=== PATIENT | male | born 1950 | race Caucasian/White ===

== ENCOUNTER 2018-11-09 23:23 | Inpatient (IN) | payer OTHER, MEDICARE ==
[~2018-11-09] VITALS: Ht 170.2 cm; Wt 114.6 kg
[~2018-11-09 23:23] MED LIST: ALLO100 PO; ALPR1 PO; CLON1 PO; CLOP75 PO; DOXY100 PO; FURO40 PO; HYDACE10B PO; HYDRA25 PO; INSR10I SC; LEVCAR2510 PO; LISI5 PO; METO5 PO; NITR.4SL SL; OMEP20ER PO; RANI150 PO; SPIR25 PO; TOPI100 PO; TRAZ100 PO; VENL150ER PO
[2018-11-10 00:20] LABS: BASOPHILS ABSOLUTE AUTO 0.03 K/mm3 (0.00-0.23); BASOPHILS PERCENT AUTO 0 % (0-2); EOSINOPHILS PERCENT AUTO 0 % (0-6); Hematocrit 37.6 % (37.0-53.0); Hemoglobin 11.9 g/dL (13.5-17.5); IMMATURE GRAN ABSOLUTE AUTO 0.18 K/mm3 (0.00-0.10); IMMATURE GRAN PERCENT AUTO 1 % (0-1); LYMPHOCYTES ABSOLUTE AUTO 0.66 K/mm3 (0.84-5.20); LYMPHOCYTES PERCENT AUTO 5 % (21-46); MONOCYTES ABSOLUTE AUTO 0.87 K/mm3 (0.16-1.47); MONOCYTES PERCENT AUTO 6 % (4-13); Mean Corpuscular HGB 29.6 pg (26.0-34.0); Mean Corpuscular HGB Conc 31.6 g/dL (31.5-36.5); Mean Corpuscular Volume 94 fL (80-100); Mean Platelet Volume 9.4 fL (9.1-12.4); NEUTROPHILS ABSOLUTE AUTO 12.17 K/mm3 (1.96-9.15); NEUTROPHILS PERCENT AUTO 88 % (41-73); Platelet Count 196 K/mm3 (150-400); RDW Coefficient Variation 15.9 % (11.7-14.2); RDW Standard Deviation 55.1 fL (35.1-46.3); Red Blood Cell Count 4.02 M/mm3 (4.30-5.90); White Blood Cell Count 13.91 K/mm3 (4.00-11.30)
[2018-11-10 00:43] LABS: Creatine Kinase MB 1.7 ng/mL (0.0-3.6)
[2018-11-10 00:44] LABS: Creatine Kinase MB Index 1.5 (0.0-4.0)
[2018-11-10 00:45] LABS: Albumin, Blood 2.6 g/dL (3.4-5.0); Albumin/Globulin Ratio 0.6 (0.8-1.8); Bilirubin, Total 0.9 mg/dL (0.1-1.0); Bun/Creatinine Ratio 28.8 (12.0-20.0); Calcium, Blood 8.3 mg/dL (8.5-10.1); Creatinine, Blood 1.63 mg/dL (0.60-1.20); Globulin, Blood 4.1 g/dL (2.2-4.0); Potassium, Blood 4.3 mmol/L (3.5-5.5); Total Protein, Blood 6.7 g/dL (6.4-8.2)
[2018-11-10 00:57] LABS: Troponin I 0.582 ng/mL (0.000-0.040)
[2018-11-10 03:29] LABS: Source, Urine Clean Catch
[2018-11-10 03:31] LABS: Bilirubin, Urine Neg (Neg); Blood, Urine 1+ (Neg); Glucose Qualitative, Urine 4+ (Neg); Ketones, Urine Neg (Neg); Leukocyte Esterase, Urine Neg (Neg); Nitrite, Urine Neg (Neg); Protein, Urine 1+ (Neg); Specific Gravity, Urine 1.015 (1.003-1.022); Urobilinogen, Urine NORM (Normal)
[2018-11-10 03:39] LABS: Appearance, Urine Clear (Clear); Color, Urine Yellow (P-Yellow)
[2018-11-10 03:46] LABS: Bacteria Rare /hpf; Red Blood Cells, Urine 0-2 /hpf (0-2); Squamous Epithelial Cells Not Seen /hpf (Few); White Blood Cells, Urine Rare /hpf (0-5)
--- NOTE | 2018-11-10 04:17 | NUR ---
SHIFT SUMMARY PT ADMITTED WITH FEVER, AFEBRILE UPON ADMISSION TO MEDICAL FLOOR. PT ALERT AND ORIENTED, IS HARD OF HEARING. PT WITH LÓPEZ CATH IN PLACE, MUCOUS NOTED AT MEATUS. ORDER RECEIVED TO DISCONTINUE LÓPEZ. PT NOTED TO HAVE MULTIPLE YEASTY AREAS, UNDER BREASTS, PANNUS, GROIN AREA, SCROTUM. PT HAD FALL AT HOME AND WAS ON THE FLOOR ALL NIGHT 2 NIGHTS AGO, SATURATED IN URINE. PT STATES HE IS CONTINENT AND INCONTINENT AT TIMES. PT USES A CPAP AT NIGHT TO SLEEP, HISTORY OF SLEEP APNEA. PT ALSO HAS MULTIPLE SMALL SCABBED AREAS ON TORSO. HAS A MEPILEX IN PLACE OVER AN AREA ON RUQ, NO DRAINAGE NOTED AND DOESN'T APPEAR TO BE OPEN. WILL CONTINUE TO MONITOR.
[2018-11-10 04:57] LABS: Hematocrit 38.1 % (37.0-53.0); Hemoglobin 11.9 g/dL (13.5-17.5); Mean Corpuscular HGB 29.9 pg (26.0-34.0); Mean Corpuscular HGB Conc 31.2 g/dL (31.5-36.5); Mean Corpuscular Volume 96 fL (80-100); Mean Platelet Volume 9.8 fL (9.1-12.4); Platelet Count 205 K/mm3 (150-400); RDW Standard Deviation 57.3 fL (35.1-46.3); Red Blood Cell Count 3.98 M/mm3 (4.30-5.90); White Blood Cell Count 12.22 K/mm3 (4.00-11.30)
[2018-11-10 05:23] LABS: Albumin, Blood 2.7 g/dL (3.4-5.0); Albumin/Globulin Ratio 0.6 (0.8-1.8); Bilirubin, Total 1.1 mg/dL (0.1-1.0); Bun/Creatinine Ratio 30.1 (12.0-20.0); Calcium, Blood 8.7 mg/dL (8.5-10.1); Creatinine, Blood 1.66 mg/dL (0.60-1.20); Globulin, Blood 4.2 g/dL (2.2-4.0); Potassium, Blood 4.2 mmol/L (3.5-5.5); Total Protein, Blood 6.9 g/dL (6.4-8.2)
[2018-11-10 08:46] LABS: Troponin I 0.529 ng/mL (0.000-0.040)
--- NOTE | 2018-11-10 10:44 | NUR ---
0810 NOTIFIED BY DROP SHIPMENT CLERK THAT PT C/O CP. PT ASSESSED. PT REPORTS SUBSTERNAL CP THAT DOES NOT RADIATE OR INCREASE WITH INSPIRATION. 0820 DR. BANUELOS NOTIFIED, RECIEVED T/O FOR STAT EKG, STAT TROPONIN, ONE TIME DOSE OF NITRO SL. 0825 DR. BANUELOS AT BEDSIDE TO EVALULATE PT. 0845 DR. BANUELOS GIVEN EKG TO EVALUATE. 0910 PT DENIES CP WITHOUT DOSE OF NITRO GIVEN. ONLY C/O SORE THROAT. DR. BANUELOS NOTIFIED. 1045 PT NO VOID, ATTEMPTED TO HAVE PT VOID WITH URINAL, PT UNABLE AND HAS NO URGE. BLADDER SCANNED, VOLUME GREATER THAN 650ML, YELLOW/GREEN PENILE DISCHARGE NOTED. 1055 DR[address] BANUELOS NOTIFIED, RECIEVED T/O TO STRAIGHT CATH, BLADDER SCAN Q6H AND SHE IS GOING TO START PT ON FLOMAX BID. PT HAS BEEN LETHARGIC AND SLEEPING ALL SHIFT. PT REFUSED BREAKFAST AND REQUESTED TO TAKE AM MEDICATIONS WITH LUNCH. WILL ATTEMPT TO GET PT TO CHAIR FOR LUNCH. SS INSULING HELD PT DID NOT EAT BREAKFAST.
--- NOTE | 2018-11-10 12:50 | NUR ---
PT HAD EXTRA LARGE INCONTINENT VOID. UP TO CHAIR FOR LUNCH WITH ONE ASSIST. NO STRAIGHT CATH AT THIS TIME.
--- NOTE | 2018-11-10 16:06 | NUR ---
SHIFT SUMMARY. A&OX3, 1-2 ASSIST WITH FWW AND GB TO TOILET AND CHAIR. UP TO CHAIR FOR MEALS. AWARE OF LIMITATIONS AND CALLS APPROPRIATLEY. PT DENIES PAIN, N/V. SOB WITH EXERTION. PHYSICAL THERAPY EVAL TODAY. BROTHER IN TO VISIT THIS AFTERNOON. PT HAS HAD TWO UNMEASURED VOIDS SINCE ORDER RECIEVED FOR STRAIGHT CATH, WILL BLADDER SCAN PER ORDERS. NO NEW CHANGES.
[2018-11-10 17:08] LABS: Troponin I 0.345 ng/mL (0.000-0.040)
--- NOTE | 2018-11-11 04:38 | NUR ---
SHIFT SUMMARY PT HAS BEEN SLEEPING WELL. HAS BEEN INCONTINENT OF LARGE VOIDS. WHEN ASKED TO USE URINAL PT DENIES FEELING THE URGE TO GO. STATES HE WILL JUST GO IN BRIEF WHEN HE FEELS THE URGE. PT C/O LEFT LEG PAIN, TYLENOL GIVEN. NO FURTHER C/O'S DURING THE NIGHT. CPAP ON, BI-OX ON. TELEMETRY INTACT, WILL CONTINUE TO MONITOR.
[2018-11-11 05:16] LABS: BASOPHILS ABSOLUTE AUTO 0.04 K/mm3 (0.00-0.23); BASOPHILS PERCENT AUTO 0 % (0-2); EOSINOPHILS ABSOLUTE AUTO 0.22 K/mm3 (0.00-0.68); EOSINOPHILS PERCENT AUTO 2 % (0-6); Hematocrit 38.8 % (37.0-53.0); Hemoglobin 11.9 g/dL (13.5-17.5); IMMATURE GRAN ABSOLUTE AUTO 0.08 K/mm3 (0.00-0.10); IMMATURE GRAN PERCENT AUTO 1 % (0-1); LYMPHOCYTES ABSOLUTE AUTO 0.68 K/mm3 (0.84-5.20); LYMPHOCYTES PERCENT AUTO 7 % (21-46); MONOCYTES PERCENT AUTO 9 % (4-13); Mean Corpuscular HGB 29.1 pg (26.0-34.0); Mean Corpuscular HGB Conc 30.7 g/dL (31.5-36.5); Mean Corpuscular Volume 95 fL (80-100); Mean Platelet Volume 10.1 fL (9.1-12.4); NEUTROPHILS ABSOLUTE AUTO 7.99 K/mm3 (1.96-9.15); NEUTROPHILS PERCENT AUTO 81 % (41-73); Platelet Count 223 K/mm3 (150-400); RDW Coefficient Variation 15.9 % (11.7-14.2); Red Blood Cell Count 4.09 M/mm3 (4.30-5.90); White Blood Cell Count 9.91 K/mm3 (4.00-11.30)
[2018-11-11 05:42] LABS: Magnesium, Blood 2.9 mg/dL (1.6-2.4)
[2018-11-11 05:44] LABS: Bun/Creatinine Ratio 32.1 (12.0-20.0); Calcium, Blood 8.8 mg/dL (8.5-10.1); Creatinine, Blood 1.59 mg/dL (0.60-1.20); Potassium, Blood 4.2 mmol/L (3.5-5.5)
--- NOTE | 2018-11-11 16:26 | NUR ---
SUMMARY PT IS A/O X4, PLEASANT/COOPERATIVE. UP WITH CHARLIE TO CHAIR TODAY, [address] BANUELOS IN TO SEE HIM THIS AM, ASSESS L LEG CELLULITIS, AREA OF UPER LEG MAPPED @ THIS TIME. IV ANTIBX CONTINUE. LEG IS PAINFUL WITH TOUCH. PT HAS HX URINARY RETENTION & INCONTINENCE, DR HENDRICKSON RENAL US, SCAN SHOW 700 ML RETENTION HOWEVER IMMEDIATELY AFTER INCONT OF LRG AMT URINE, PVR 182. HE HAS HAD MULT LRG INCONT VOIDS TODAY. VSS, NO FEVERS. HX PARKINSONS, SIGNIFICANT BUE TERMORS, ON SINEMET. TELE REPORT AFLUTTER 60'S. TROP ELEVATED, TRENDING DOWN, HX CHF & CABG/STENTS.
--- NOTE | 2018-11-12 04:26 | NUR ---
SHIFT SUMMARY NO CHANGES THIS SHIFT. PT HAS RESTED MOST OF THE NIGHT. CELLULITIS TO LEFT LEG REMAINS AND IS EXTENDED TO UPPER LEG. PT REPORTS PAIN IN LEG INTERMITTANTLY. BUT STATES PAIN IS TOLERABLE. EDEMA TO BLE +3. PT A/OX4, PLESANT, AND COPPERATIVE WITH CARE. BLOOD SUGARS IN THE 200'S. VITALS ARE STABLE. HUGH BIOX IN PLACE. SATS WNL. ASSESSMENT OTHERWISE UNCHANGED. WILL CONTINUE TO MONITOR AND REPORT TO ONCOMING RN.
[2018-11-12 04:40] LABS: Hematocrit 38.6 % (37.0-53.0); Hemoglobin 11.9 g/dL (13.5-17.5); Mean Corpuscular HGB 29.2 pg (26.0-34.0); Mean Corpuscular HGB Conc 30.8 g/dL (31.5-36.5); Mean Corpuscular Volume 95 fL (80-100); Mean Platelet Volume 9.7 fL (9.1-12.4); Platelet Count 218 K/mm3 (150-400); RDW Coefficient Variation 15.5 % (11.7-14.2); RDW Standard Deviation 53.9 fL (35.1-46.3); Red Blood Cell Count 4.08 M/mm3 (4.30-5.90)
[2018-11-12 05:00] LABS: Albumin, Blood 2.4 g/dL (3.4-5.0); Anion Gap 7 mmol/L (6-16); Blood Urea Nitrogen 44 mg/dL (8-24); Bun/Creatinine Ratio 32.4 (12.0-20.0); CO2, Blood 27 mmol/L (21-32); Calcium, Blood 8.8 mg/dL (8.5-10.1); Chloride, Blood 102 mmol/L (98-108); Creatinine, Blood 1.36 mg/dL (0.60-1.20); Glomerular Filtration Rate 55 (60-); Glucose, Blood 267 mg/dL (70-99); Magnesium, Blood 2.8 mg/dL (1.6-2.4); Phosphorus, Blood 3.7 mg/dL (2.5-4.9); Potassium, Blood 4.5 mmol/L (3.5-5.5); Sodium, Blood 136 mmol/L (136-145)
--- NOTE | 2018-11-12 17:03 | NUR ---
SUMMARY PT IS A/O X4, PLEASANT/COOPERATIVE AFFECT. SBA W FWW TO CHAIR. VS STABLE, NO FEVER TODAY. HE HAS REDNESS/SWELLING L THIGH AREA THAT IS MAPPED, DR BANUELOS IS MONITIORING. DX CELLULITIS & PNEUM. HE IS GETTING IV ANTIBX. L LEG IS VERY PAINFUL WITH TOUCH, HAVE GIVEN NORCO TWICE TODAY FOR GOOD PAIN CONTROL. HAVE BEEN MONITORING URINARY RETENTION. PVR TODAY APPOX 167 & 240, NO STRAIT CATH REQUIRED, DR CHANGE BLADDER SCANS TO NEEDED. HE HAS BEEN GENERALLY CONTINENT WITH URINAL HOWEVER @ X'S INCONT, CONTINUES IN ATTENDS. UP IN CHAIR THIS AFTERNOON UNTIL DINNERTIME. BLOOD SUGARS HAVE BEEN ELEVATED, ADJUST INSULIN ORDERS.
--- NOTE | 2018-11-13 04:33 | NUR ---
SHIFT SUMMARY NO CHANGES THIS SHIFT. PT HAS RESTED MOST OF THE NIGHT, MEDICATED X1 FOR PAIN. PT HAS BEEN CALLING WHENEVER HE HAS TO VOID AND HAS NOT HAD ANY PROBLEMS WITH RETENTION OR INCONTINENCE. CELLULITIS TO LEFT LEG REMAINS. OUTLINED WITH TAMI. PT A/OX4, PLESANT WITH CARE. VITALS STABLE. WILL CONTINUE TO MONITOR AND REPORT TO ONCOMING RN.
--- NOTE | 2018-11-13 14:11 | NUR ---
Initial Visit: Palliative Care consult for advance care planning. Pt resting in bed and is A&O X4. He reports a tolerable pain level of 5/10 in his left hip. Pt is a and retired counselor at law. He denies any religous belief. Therapeutic conversation initated and listened to Pt's concerns for imediate and nursing home goals for his disease process. Listened as he reminiscence about hunting and his gun collection. He expresses some frustration of giving many of his guns and recreational toys to his family members as he is no longer to enjoy them due to his condition. Discussion was made about the possiblilty of going to SNF and he expresses concerns but will consider this option. He reports that the [facility] provides caregivers that come into his home several times a week and his brother and sister in law also helps in his care. Discussed plans and needs for him to be successful in his plan of care including dibetes education and diet education. He states "I have been there and done that and not interested". He reports his biggest concern at this time is not receiving his leg wrappings during his hospital stay. He states he has them wrapped at the [facility] by Selena finch. Spoke with Pt's nurse Odessa and she reports needing to adress his leg dressings as well. Plan: Contact Selena at [facility] and determine dressings Pt receives and request from hospitilist the same dressing. Will remain available available.
--- NOTE | 2018-11-13 18:31 | NUR ---
SHIFT SUMMARY EL GOT UP TO CHAIR WITH AO1-2 TWICE TODAY. INCONTINENT AT TIMES, AND INCONTINENT AT TIMES OF URINE. HAD BM TODAY. RED UNDER FOLDS, NYSATIN APPLIED. BLADDER SCANNED X1 TODAY, AROUND 150CC. CBGS HIGH BUT UNDER BETTER CONTROL TODAY THAN YESTERDAY. PT WANTS TO GO TO [facility] FOR SNF, NOT [facility], THIS WAS RELAYED TO CASE MANAGEMENT. CALL IN (BY PALLIATIVE) TO [facility] TO SEE WHAT KIND OF WRAPS HE USED ON HIS LEGS, AWAITING CALLBACK. LOTS OF TREMORS, REQUIRED ASSISTNACE WITH MEAL PREP/CUTTING WELL USING URINAL. USED CPAP FOR NAPS. RA WHILE AWAKE. COMPLAINED OF PAIN IN R PINKY BUT DECLINED PAIN MEDS.WCTM
--- NOTE | 2018-11-14 04:56 | NUR ---
11/14/18 0455 PT SLEPT MOST OF SHIFT WITH CPAP ON. AWAKENS FOR MEDS, TURNING AND NURSING TASKS. VITALS REMAIN STABLE. SEVERE EDEMA WITH CELLULITIS TO LOWER LEGS. LIMITED MOVEMENT WITH LEGS THEY ARE HEAVY AND WEAK. NO DISTRESS THIS SHIFT.
--- NOTE | 2018-11-14 18:39 | NUR ---
SHIFT SUMMARY PATIENT A&O X4. DENIES ANY PAIN, SOB, OR NAUSEA THIS SHIFT. WORE CPAP MOST OF THE SHIFT. RN MEDICATED PER Jan. UP TO CHAIR FOR MEALS. IV ABX PER ORDERS. BED IN LOWEST POSITION , CALL LIGHT WITHIN REACH. NO ACUTE CHANGES. RN WILL CONTINUE TO MONITOR.
--- NOTE | 2018-11-15 05:10 | NUR ---
11/15/18 0510 AWAKENED TO REPOSITION AND DO SKIN CARE AND CHANGE ATTENDS BRIEF. REFUSED TO LAY ON EITHER SIDE THIS IS"TOO UNCOMFORTABLE". DECLINED ANY PAIN MED THIS AM. VITALS REMAIN STABLE. NO STOOLS THIS SHIFT.
--- NOTE | 2018-11-15 10:56 | NUR ---
I entered patient's room and found him sitting up in bed and alert. Patient welcomed me in and allowed for therapeutic alliance to be established. Patient shared with me his deep concerns about feeling forced into being moved to a rehabilitation unit. I listened empathically as he shared the reasons connected to his hesitation for that kind of move. I provided anxiety containment, normalized his frustrations, explored his belief system and I encouraged self-care. I also suggested that the motive behind the attempts for a move to a rehab. facility was in his best interest. After asking permission, I provided prayer. Patient thanked me for the prayer and asked if I could return and visit again with him. I said I would make every effort to do so.
--- NOTE | 2018-11-15 18:12 | NUR ---
PATIENT A/OX4, UP WITH FWW ANS 1 ASSIST TO CHAIR. 4+ EDEMA TO BLE. MULTIPLE SCABS AND SORES COVERING BODY. NYSTATIN POWDER TO FOLDS. VSS THIS SHIFT. ACHS BLOOD SUGARS WITH HUMALOG AND LANTUS COVERAGE. CPAP AT NOC WITH CONTINUOUS PULSE OX. USES URINAL WITH OCCASIONAL INCONTINENCE. NORCO GIVEN X2 THIS SHIFT FOR NECK PAIN. 22G TO L UPPER ARM WNL AND SL BETWEEN ABX. CONTACT PRECAUTIONS FOR MRSA IN NARES. NO ACUTE CHANGES THIS SHIFT. PATIENT IS WANTING TO GO HOME INSTEAD OF SNF.
--- NOTE | 2018-11-16 01:06 | NUR ---
11/15/18 3493 PT LYING IN BED, DENIES ANY DISCOMFORT AT THIS TIME. USES CPAP AT [facility]. BS 164. NO APPARENT SIGNS OF DISTRESS. CALL LIGHT IS IN REACH.
--- NOTE | 2018-11-16 01:55 | NUR ---
11/15/18 2347 PT LYING IN BED, AWAKE, DENIES NEED FOR ANYTHING AT THIS TIME. NO APPARENT SIGNS OF DISTRESS. CALL LIGHT IS IN REACH.
--- NOTE | 2018-11-16 01:56 | NUR ---
PT LYING IN BED, EYES CLOSED, APPEARS TO BE RESTING. BREATHING IS EVEN, UNLABORED. NO APPARENT SIGNS OF DISTRESS. CALL LIGHT IS IN REACH.
--- NOTE | 2018-11-16 03:32 | NUR ---
PT LYING IN BED, EYES CLOSED, APPEARS TO BE RESTING. BREATHING IS EVEN, UNLABORED.NO APPARENT SIGNS OF DISTRESS. CALL LIGHT IS IN REACH.
--- NOTE | 2018-11-16 03:36 | NUR ---
PT IS AAO X 4, RESIGHINI. ON RA AT 98%. USES CPAP AT [facility]. DENIED ANY DISCOMFORT FOR THIS SHIFT. BS 164. YEAST IN ABD FOLDS, HAS NYSTATIN POWDER FOR THIS.
[2018-11-16 05:24] LABS: BASOPHILS ABSOLUTE AUTO 0.05 K/mm3 (0.00-0.23); BASOPHILS PERCENT AUTO 1 % (0-2); EOSINOPHILS ABSOLUTE AUTO 0.36 K/mm3 (0.00-0.68); EOSINOPHILS PERCENT AUTO 6 % (0-6); Hematocrit 38.6 % (37.0-53.0); Hemoglobin 12.1 g/dL (13.5-17.5); IMMATURE GRAN ABSOLUTE AUTO 0.34 K/mm3 (0.00-0.10); IMMATURE GRAN PERCENT AUTO 5 % (0-1); LYMPHOCYTES ABSOLUTE AUTO 0.79 K/mm3 (0.84-5.20); LYMPHOCYTES PERCENT AUTO 13 % (21-46); MONOCYTES ABSOLUTE AUTO 0.71 K/mm3 (0.16-1.47); MONOCYTES PERCENT AUTO 11 % (4-13); Mean Corpuscular HGB 29.8 pg (26.0-34.0); Mean Corpuscular HGB Conc 31.3 g/dL (31.5-36.5); Mean Corpuscular Volume 95 fL (80-100); Mean Platelet Volume 9.2 fL (9.1-12.4); NEUTROPHILS ABSOLUTE AUTO 4.02 K/mm3 (1.96-9.15); NEUTROPHILS PERCENT AUTO 64 % (41-73); Platelet Count 308 K/mm3 (150-400); RDW Coefficient Variation 14.8 % (11.7-14.2); RDW Standard Deviation 52.5 fL (35.1-46.3); Red Blood Cell Count 4.06 M/mm3 (4.30-5.90); White Blood Cell Count 6.27 K/mm3 (4.00-11.30)
--- NOTE | 2018-11-16 05:30 | NUR ---
PT LYING IN BED, EYES CLOSED, APPEARS TO BE RESTING. BREATHING IS EVEN, UNLABORED. NO APPARENT SIGNS OF DISTRESS. CALL LIGHT IS IN REACH. NO OTHER CHANGES THIS SHIFT.
[2018-11-16 05:50] LABS: Anion Gap 6 mmol/L (6-16); Blood Urea Nitrogen 25 mg/dL (8-24); Bun/Creatinine Ratio 23.6 (12.0-20.0); CO2, Blood 26 mmol/L (21-32); Calcium, Blood 8.8 mg/dL (8.5-10.1); Chloride, Blood 105 mmol/L (98-108); Creatinine, Blood 1.06 mg/dL (0.60-1.20); Glomerular Filtration Rate >60 (60-); Glucose, Blood 166 mg/dL (70-99); Potassium, Blood 4.2 mmol/L (3.5-5.5); Sodium, Blood 137 mmol/L (136-145)
--- NOTE | 2018-11-16 18:31 | NUR ---
PATIENT A/OX4, VERY [place]. WORKED WITH PT/OT TODAY. SPENT THE AFTERNOON UP IN HIS CHAIR. 4+EDEMA TO BLE, SKIN RED. MULTIPLE SCABS COVERING BODY, NYSTATIN APPLIED TO FOLD. USES URINAL AT TIMES, OCCASIONAL INCONTIENCE. UP WITH FWW AND 1 ASSIST. CALLS APPROPRIATELY FOR ASSISTANE. ACHS BLOOD SUGARS, TOLERATING ADA DIET. VSS, LUNGS CLEAR/DIM ON RA. NO ACUTE CHANGES THIS SHIFT.
--- NOTE | 2018-11-17 01:50 | NUR ---
11/16/18 2155 PT LYING IN BED, REPORTS SHOULDER PAIN, GAVE NORCO, WILL EVAL FOR EFFECT. NO OTHER APPARENT SIGNS OF DISTRESS. CALL LIGHT IS IN REACH.
--- NOTE | 2018-11-17 01:51 | NUR ---
0051 PT LYING IN BED, EYES CLOSED, APPEARS TO BE RESTING. WAKES EASILY TO VERBAL STIMULI. NO APPARENT SIGNS OF DISTRESS. CALL LIGHT IS IN REACH. 0150 PT LYING IN BED, EYES CLOSED, APPEARS TO BE RESTING. BREATHING IS EVEN, UNLABORED. NO APPARENT SIGNS OF DISTRESS. CALL LIGHT IS IN REACH.
--- NOTE | 2018-11-17 03:28 | NUR ---
PT LYING IN BED, EYES CLOSED, APPEARS TO BE RESTING. BREATHING IS EVEN, UNLABORED. NO APPARENT SIGNS OF DISTRESS. CALL LIGHT IS IN REACH.
--- NOTE | 2018-11-17 03:29 | NUR ---
PT IS AAO X 4, THOUGH [facility]. REPORTED SHOULDER PAIN, GOT NORCO. ON RA. BS WAS 157.
--- NOTE | 2018-11-17 13:56 | NUR ---
REPORT CALLED TO ANEL AT 1355 AT [facility].
[2018-11-17] MEDS ORDERED: DOCU100 PO (14:19)
[2018-11-17] MEDS ORDERED: INSULANPEN SC ×2 (14:20→14:21)
[2018-11-17] MEDS ORDERED: Humalog100 UNIT/1 SC (14:21)
[2018-11-17] MEDS ORDERED: Humalog Mi100 UNIT/4 (14:22)
[2018-11-17] MEDS ORDERED: Pedi-Dri 100,0060 GM TOP (14:23)
[2018-11-17] MEDS ORDERED: Flomax0.4 MG PO (14:24)
[2018-11-17] MEDS ORDERED: SACC250C PO (14:25)
[2018-11-17] MEDS ORDERED: FLONASE SENSIM5.9 ML (14:26)
== END 2018-11-17 14:45 | DRG 871 ==
LOC: DELPENDDIS → ER 23:23 → MEDS 11-10 00:52 → ER 11-10 02:12 → MEDS 11-10 02:12 → ENPENDDIS 11-14 14:00 → EDPENDDIS 11-14 19:32 → ENPENDDIS 11-14 19:32 → MEDS 11-17 14:45 → ENPENDDIS 11-17 14:46
PROVIDERS: Emergency Medicine; Internal Medicine; ADMIT Internal Medicine
PROC: 5A09357 Assistance with Respiratory Ventilation, Less than 24 Consecutive Hours, Continuous Positive Airway Pressure (ICD-10-PCS; principal; 2018-11-10)
PROC: 3E02340 Introduction of Influenza Vaccine into Muscle, Percutaneous Approach (ICD-10-PCS; 2018-11-10)
DX: A41.9 Sepsis, unspecified organism (principal); J18.9 Pneumonia, unspecified organism; L03.116 Cellulitis of left lower limb; N17.9 Acute kidney failure, unspecified; I13.0 Hypertensive heart and chronic kidney disease with heart failure and stage 1 through stage 4 chronic kidney disease, or unspecified chronic kidney disease; I50.32 Chronic diastolic (congestive) heart failure; I48.92 Unspecified atrial flutter; F33.8 Other recurrent depressive disorders; Z68.42 Body mass index [BMI] 45.0-49.9, adult; E86.0 Dehydration; R65.20 Severe sepsis without septic shock; M19.90 Unspecified osteoarthritis, unspecified site; G31.83 Neurocognitive disorder with Lewy bodies; F02.80 Dementia in other diseases classified elsewhere, unspecified severity, without behavioral disturbance, psychotic disturbance, mood disturbance, and anxiety; E11.22 Type 2 diabetes mellitus with diabetic chronic kidney disease; E11.65 Type 2 diabetes mellitus with hyperglycemia; N18.3 Chronic kidney disease, stage 3 (moderate); I25.10 Atherosclerotic heart disease of native coronary artery without angina pectoris; E11.40 Type 2 diabetes mellitus with diabetic neuropathy, unspecified; G47.33 Obstructive sleep apnea (adult) (pediatric); I25.2 Old myocardial infarction; R33.9 Retention of urine, unspecified; I27.20 Pulmonary hypertension, unspecified; E66.01 Morbid (severe) obesity due to excess calories; R26.9 Unspecified abnormalities of gait and mobility; R77.8 Other specified abnormalities of plasma proteins; F41.8 Other specified anxiety disorders; M10.9 Gout, unspecified; I89.0 Lymphedema, not elsewhere classified; Z23 Encounter for immunization; F43.10 Post-traumatic stress disorder, unspecified; E78.5 Hyperlipidemia, unspecified; Z74.09 Other reduced mobility; Z79.02 Long term (current) use of antithrombotics/antiplatelets; Z91.81 History of falling; Z95.1 Presence of aortocoronary bypass graft; Z95.5 Presence of coronary angioplasty implant and graft; Z79.4 Long term (current) use of insulin; Z79.899 Other long term (current) drug therapy
CPT/HCPCS: 36415; 71046; 76770; 80048; 80053; 80069; 81001; 82550; 82553; 82947; 83605; 83735; 84145; 84484; 85025; 85027; 87040; 87081; 87147; 90686; 93005; 93010; 93306; 94762; 97110; 97116; 97162; 97165; 97530; 97535; 99285-25; J0690; J1650; J1956; J7050

== ENCOUNTER 2019-07-13 12:23 | Emergency (ER) | payer MEDICARE, BC ==
[~2019-07-13] VITALS: Ht 167.6 cm; Wt 161.0 kg
[~2019-07-13 12:23] MED LIST changes: +DOCU100 PO; +FLONASE SENSIM5.9 ML; +Flomax0.4 MG PO; +Humalog Mi100 UNIT/4; +Humalog100 UNIT/1 SC; +INSULANPEN SC; +Pedi-Dri 100,0060 GM TOP; +SACC250C PO
[2019-07-13 12:55] LABS: BASOPHILS ABSOLUTE AUTO 0.04 K/mm3 (0.00-0.23); BASOPHILS PERCENT AUTO 1 % (0-2); EOSINOPHILS ABSOLUTE AUTO 0.14 K/mm3 (0.00-0.68); EOSINOPHILS PERCENT AUTO 2 % (0-6); Hematocrit 40.2 % (37.0-53.0); Hemoglobin 12.7 g/dL (13.5-17.5); IMMATURE GRAN ABSOLUTE AUTO 0.03 K/mm3 (0.00-0.10); IMMATURE GRAN PERCENT AUTO 0 % (0-1); LYMPHOCYTES ABSOLUTE AUTO 0.93 K/mm3 (0.84-5.20); LYMPHOCYTES PERCENT AUTO 12 % (21-46); MONOCYTES ABSOLUTE AUTO 0.71 K/mm3 (0.16-1.47); MONOCYTES PERCENT AUTO 9 % (4-13); Mean Corpuscular HGB 31.2 pg (26.0-34.0); Mean Corpuscular HGB Conc 31.6 g/dL (31.5-36.5); Mean Corpuscular Volume 99 fL (80-100); Mean Platelet Volume 9.3 fL (9.1-12.4); NEUTROPHILS PERCENT AUTO 76 % (41-73); Platelet Count 221 K/mm3 (150-400); RDW Coefficient Variation 15.1 % (11.7-14.2); RDW Standard Deviation 54.9 fL (35.1-46.3); Red Blood Cell Count 4.07 M/mm3 (4.30-5.90); White Blood Cell Count 7.65 K/mm3 (4.00-11.30)
[2019-07-13 13:15] LABS: Alanine Aminotransfer (ALT/SGP 23 U/L (12-78); Albumin, Blood 3.1 g/dL (3.4-5.0); Albumin/Globulin Ratio 0.8 (0.8-1.8); Alk Phos 158 U/L (50-136); Anion Gap 3 mmol/L (6-16); Aspartate Aminotrans (AST/SGOT 25 U/L (12-37); Bilirubin, Total 0.7 mg/dL (0.1-1.0); Blood Urea Nitrogen 28 mg/dL (8-24); CO2, Blood 31 mmol/L (21-32); Chloride, Blood 106 mmol/L (98-108); Creatinine, Blood 1.12 mg/dL (0.60-1.20); Globulin, Blood 4.1 g/dL (2.2-4.0); Glomerular Filtration Rate >60 (60-); Glucose, Blood 102 mg/dL (70-99); Potassium, Blood 3.7 mmol/L (3.5-5.5); Sodium, Blood 140 mmol/L (136-145); Total Protein, Blood 7.2 g/dL (6.4-8.2); Troponin I 0.077 ng/mL (0.000-0.040)
[2019-07-13] MEDS ORDERED: FURO20 PO (14:42)
[2019-07-13] MEDS ORDERED: INSULANPEN SC (14:43)
[2019-07-13] MEDS ORDERED: NOVOLOG FL100 UNIT/1 SC (14:45)
[2019-07-13] MEDS ORDERED: METO2.5 PO (14:50)
== END 2019-07-13 15:06 | disposition home or self-care (01) ==
LOC: ER 12:23
PROVIDERS: Emergency Medicine
DX: I11.0 Hypertensive heart disease with heart failure (principal); I50.9 Heart failure, unspecified; E11.9 Type 2 diabetes mellitus without complications; I25.2 Old myocardial infarction; Z79.899 Other long term (current) drug therapy; Z79.02 Long term (current) use of antithrombotics/antiplatelets; Z79.4 Long term (current) use of insulin; Z79.891 Long term (current) use of opiate analgesic
CPT/HCPCS: 36415; 71046; 80053; 82947; 83880; 84484; 85025; 93005; 93010; 99284-25

== ENCOUNTER 2019-09-05 14:11 | Inpatient (IN) | payer OTHER, MEDICARE ==
[~2019-09-05] VITALS: Ht 170.2 cm; Wt 146.4 kg
[~2019-09-05 14:11] MED LIST changes: +FURO20 PO; +METO2.5 PO; +NOVOLOG FL100 UNIT/1 SC
[2019-09-05 15:15] LABS: BASOPHILS ABSOLUTE AUTO 0.06 K/mm3 (0.00-0.23); BASOPHILS PERCENT AUTO 1 % (0-2); EOSINOPHILS ABSOLUTE AUTO 0.12 K/mm3 (0.00-0.68); EOSINOPHILS PERCENT AUTO 1 % (0-6); Hematocrit 43.7 % (37.0-53.0); Hemoglobin 13.3 g/dL (13.5-17.5); IMMATURE GRAN ABSOLUTE AUTO 0.04 K/mm3 (0.00-0.10); IMMATURE GRAN PERCENT AUTO 0 % (0-1); LYMPHOCYTES ABSOLUTE AUTO 1.08 K/mm3 (0.84-5.20); LYMPHOCYTES PERCENT AUTO 11 % (21-46); MONOCYTES ABSOLUTE AUTO 1.19 K/mm3 (0.16-1.47); MONOCYTES PERCENT AUTO 12 % (4-13); Mean Corpuscular HGB Conc 30.4 g/dL (31.5-36.5); Mean Corpuscular Volume 95 fL (80-100); NEUTROPHILS PERCENT AUTO 74 % (41-73); Platelet Count 334 K/mm3 (150-400); RDW Coefficient Variation 14.8 % (11.7-14.2); RDW Standard Deviation 51.9 fL (35.1-46.3); Red Blood Cell Count 4.58 M/mm3 (4.30-5.90); White Blood Cell Count 9.59 K/mm3 (4.00-11.30)
[2019-09-05 15:28] LABS: Albumin/Globulin Ratio 0.7 (0.8-1.8); Bilirubin, Total 0.8 mg/dL (0.1-1.0); Bun/Creatinine Ratio 35.5 (12.0-20.0); Calcium, Blood 9.6 mg/dL (8.5-10.1); Creatinine, Blood 1.55 mg/dL (0.60-1.20); Globulin, Blood 4.5 g/dL (2.2-4.0); Potassium, Blood 2.9 mmol/L (3.5-5.5); Total Protein, Blood 7.5 g/dL (6.4-8.2); Troponin I 0.316 ng/mL (0.000-0.040)
--- NOTE | 2019-09-05 19:30 | NUR ---
PCU ADMIT / CARE ASSUMPTION PT BROUGHT TO PCU 14 FROM ER BY PASQUALE @ APPROX 1845. PT TRANSFERED INTO BY ER STAFF AND PCU DAY SHIFT STAFF. PT A&O X4. PT TREMULOUS W/ REPORTED HX OF PARKINSONS. MONITOR SHOWS AFIB, HR 70'S. LUNG SOUNDS CLEAR, DIM IN BASES. SPO2 > 92% ON 2L NC W/ REPORT OF RA @ BASELINE. PT'S HOME CPAP AT BEDSIDE. PT W/ GENERALIZED EDEMA. WILL CONTINUE TO MONITOR AND PROVIDE CARE.
--- NOTE | 2019-09-05 23:03 | NUR ---
ELEVATED TROPONIN / CALL TO MEDICAL MANAGEMENT TRAINER CALL TO MEDICAL MANAGEMENT TRAINER YANICK @ 8793 TO REPORT TROPONIN INCREASE FROM 0.316 TO 0.682. MEDICAL MANAGEMENT TRAINER W/ INSTRUCTIONS TO REPEAT EKG.
--- NOTE | 2019-09-06 03:10 | NUR ---
VTACH REPORT OF PT HAVING 9 BEAT RUN OF VTACH @ 0237. PT ASYMPTOMATIC. STRIP PRINTED IN CHART.
[2019-09-06 04:37] LABS: BASOPHILS ABSOLUTE AUTO 0.08 K/mm3 (0.00-0.23); BASOPHILS PERCENT AUTO 1 % (0-2); EOSINOPHILS PERCENT AUTO 4 % (0-6); Hematocrit 42.3 % (37.0-53.0); Hemoglobin 12.7 g/dL (13.5-17.5); IMMATURE GRAN ABSOLUTE AUTO 0.04 K/mm3 (0.00-0.10); IMMATURE GRAN PERCENT AUTO 1 % (0-1); LYMPHOCYTES ABSOLUTE AUTO 1.44 K/mm3 (0.84-5.20); LYMPHOCYTES PERCENT AUTO 17 % (21-46); MONOCYTES ABSOLUTE AUTO 1.02 K/mm3 (0.16-1.47); MONOCYTES PERCENT AUTO 12 % (4-13); Mean Corpuscular HGB 28.4 pg (26.0-34.0); Mean Corpuscular Volume 95 fL (80-100); Mean Platelet Volume 9.1 fL (9.1-12.4); NEUTROPHILS ABSOLUTE AUTO 5.52 K/mm3 (1.96-9.15); NEUTROPHILS PERCENT AUTO 66 % (41-73); NRBC ABSOLUTE 0.03 K/mm3 (0.00-0.02); NRBC Auto 0.4 /100 WBC (0.0-0.2); Platelet Count 305 K/mm3 (150-400); RDW Coefficient Variation 14.8 % (11.7-14.2); RDW Standard Deviation 51.4 fL (35.1-46.3); Red Blood Cell Count 4.47 M/mm3 (4.30-5.90)
[2019-09-06 04:49] LABS: Bun/Creatinine Ratio 32.3 (12.0-20.0); Calcium, Blood 9.2 mg/dL (8.5-10.1); Creatinine, Blood 1.86 mg/dL (0.60-1.20); Potassium, Blood 3.8 mmol/L (3.5-5.5)
--- NOTE | 2019-09-06 05:06 | NUR ---
SHIFT SUMMARY PT A&O X4 W/ FORGETFULNESS. PT TREMULOUS. MONITOR SHOWS AFIB, HR 70'S. LUNG SOUNDS CLEAR, DIM IN BASES. SPO2 > 92% ON RA-4L NC THIS SHIFT, USING HOME CPAP WHILE SLEEPING. PT REPORTS LIVING HOME ALONE W/ HIS CAT. SCRATCHES NOTED T/O PT'S ABD AND EXTREMITIES. PT REPORTS HAVING 3 CAREGIVERS THAT ASSIST W/ HIS CARE HE REQUIRES HELP W/ ALL ADL'S. EDEMA NOTED T/O. WILL CONTINUE TO MONITOR AND PROVIDE CARE UNTIL REPORT OFF TO DAY SHIFT RN.
--- NOTE | 2019-09-06 06:18 | NUR ---
ELEVATED TROPONIN CALL TO MD GALLEGOS THIS AM @ 5691 TO REPORT TROPONIN INCREASE FROM 0.682 TO 1.04. NO NEW ORDERS AT THIS TIME.
--- NOTE | 2019-09-06 10:16 | NUR ---
ECHOCARDIOGRAM COMPLETED
--- NOTE | 2019-09-06 15:08 | NUR ---
NEO ESQUIVEL HAD REQUESTED PT HAVE NEO HOSE PLACED. HOWEVER, PT IS REC'ING LASIX AND IS GROSSLY INCONTINENT REQUIRING GOWN CHANGES AND HOUSEKEEPING SERVICES WHEN HE USES EITHER THE BATHROOM, BARIATRIC BSC, OR URINAL WITH ASSIST. DISCUSSED WITH CHARGE NURSE... HAVE PLACED ATTENDS WITH SEVERAL ABSORB PADS TO SEE IF URINE CAN BE CONTAINED IN ORDER TO AVOID CHANGING OUT TEDHOSE D/T URINE SATURATION. IF ABLE TO DO SO, WILL ATTEMPT TO PLACE XL KNEE HIGH NEO HOSE.
--- NOTE | 2019-09-06 15:12 | NUR ---
PT C/O CHRONICALLY ITCHY BACK - CAUSES RESTLESSNESS AND FREQUENT CALL LIGHT WITH REQUESTS TO SCRATCH BACK. REQUESTED OT LOG SOCK/SHOE HORN TO BE ABLE TO SAFELY ATTACH WASHCLOTH FOR SCRATCHING WITHOUT INJURY TO SKIN.
--- NOTE | 2019-09-06 17:42 | NUR ---
FRONT END TECHNICIAN SHIFT SUMMARY PT HAS BEEN DOING BETTER WITH DIUESIS AND ATIVAN. HAS HAD FEWER BOUTS OF ANXIOUSNESS. CONT'S TO C/O ITCHY BACK. MAKESHIFT BACK ELEMENTARY ESL TEACHER WAS NOT EFFECTIVE - TOO FLIMSY. CARD CONSULT TODAY WITH DR PATEL, NEW MED ORDERS. WILL MANAGE MEDICALLY. PT IS FORGETTFUL AND NEEDS REMINDING REGARDING APPROPRIATE SEATING ARRANGEMENTS FOR HIS WT AND GIRTH. FREQ REQUESTS TO SIT IN SMALLER CHAIR. DISCOVERED AT THOSE TIMES TO REARRANGE PILLOWS AND GOWN FOR COMFORT. REPORT GIVEN TO PEER RN WHO WILL CONT TO MONITOR AND REPORT TO NOC RN.
--- NOTE | 2019-09-07 02:24 | NUR ---
Patient alert and oriented with confusion at times. Hallucinations of mice on the ceiling and cats under his bedside table. Frequent changes in position from bed to chair. Frequent orientation and reminders to use call light; patient does not use call light and often calls out and tries to get out of bed alone. Bed alarm on. VSS. Incontinent of urine with full saturations of attends. Up to bedside commode with one assist and FWW. BM x1. Dyspnia upon exertion. On oxygen at 2L per NC.
--- NOTE | 2019-09-07 02:55 | NUR ---
Telemetry: Afib with BBB. had a 6 beat run of Vtach at 0254.
[2019-09-07 04:50] LABS: BASOPHILS ABSOLUTE AUTO 0.08 K/mm3 (0.00-0.23); BASOPHILS PERCENT AUTO 1 % (0-2); EOSINOPHILS ABSOLUTE AUTO 0.38 K/mm3 (0.00-0.68); EOSINOPHILS PERCENT AUTO 4 % (0-6); Hemoglobin 12.4 g/dL (13.5-17.5); IMMATURE GRAN ABSOLUTE AUTO 0.05 K/mm3 (0.00-0.10); IMMATURE GRAN PERCENT AUTO 1 % (0-1); LYMPHOCYTES ABSOLUTE AUTO 1.24 K/mm3 (0.84-5.20); LYMPHOCYTES PERCENT AUTO 14 % (21-46); MONOCYTES ABSOLUTE AUTO 0.91 K/mm3 (0.16-1.47); MONOCYTES PERCENT AUTO 11 % (4-13); Mean Corpuscular HGB 28.9 pg (26.0-34.0); Mean Corpuscular Volume 93 fL (80-100); Mean Platelet Volume 9.2 fL (9.1-12.4); NEUTROPHILS ABSOLUTE AUTO 6.02 K/mm3 (1.96-9.15); NEUTROPHILS PERCENT AUTO 69 % (41-73); Platelet Count 294 K/mm3 (150-400); RDW Coefficient Variation 14.8 % (11.7-14.2); RDW Standard Deviation 50.5 fL (35.1-46.3); Red Blood Cell Count 4.29 M/mm3 (4.30-5.90); White Blood Cell Count 8.68 K/mm3 (4.00-11.30)
[2019-09-07 05:12] LABS: Anion Gap 9 mmol/L (6-16); Blood Urea Nitrogen 71 mg/dL (8-24); Bun/Creatinine Ratio 37.2 (12.0-20.0); CO2, Blood 26 mmol/L (21-32); Calcium, Blood 8.8 mg/dL (8.5-10.1); Chloride, Blood 99 mmol/L (98-108); Cholesterol 122 mg/dL (50-200); Creatinine, Blood 1.91 mg/dL (0.60-1.20); Glomerular Filtration Rate 37 (60-); Glucose, Blood 218 mg/dL (70-99); HDL Cholesterol 41 mg/dL (>39); LDL/HDL RATIO 1.5; Low Density Lipoprotein Chol 62 mg/dL (0-110); Potassium, Blood 3.7 mmol/L (3.5-5.5); Sodium, Blood 134 mmol/L (136-145); Triglycerides 96 mg/dL (30-160); Very Low Density Lipoprot Chol 19 mg/dL (6-32)
--- NOTE | 2019-09-07 07:30 | NUR ---
REPORT REC'D FROM DARVIN. PT LYING IN BED APPEARS TO BE SLEEPING. AWAKENS EASILY. NO COMPLAINTS OR REQUESTS AT THIS TIME. ASSESSMENT NOTED. VSS. WILL GIVE AM MEDS, MONITOR AND TREAT ACCORDING TO ORDERS AND NURSING P&P/PRN. CALL LIGHT IN REACH. BED ALARM ACTIVATED PT APPEARS MORE SLEEPY AND CONFUSED THAN HE DID YESTERDAY. CALL LIGHT AND BELONGINS IN REACH.
--- NOTE | 2019-09-07 12:35 | NUR ---
PT HAS C/O "NOT FEELING RIGHT" SEVERAL TIMES THIS MORNING. PT APPEARS DROWSY, LETHARGIC. NO CHANGES ON TELEMETRY. HR IS LOWER THAN ON ADMISSION. CARDIAC MEDS WERE CHANGED YESTERDAY. WAS DIURETICS. PT HAS VISIBLY LOST WATER RETENTION AROUND CHIN, EXTREMETIES REMAIN EXTREMELY EDEMATOUS. PT REMINDED OF CHANGE IN MEDS, DIURESIS, MANAGED CBG'S, AND LOWER HR SEVERAL TIMES. HE HAS WORKED SOME WITH THERAPY AND DECLINED OTHERS. CURRENTLY IN RECLINER AFTER EATING LUNCH AND REPORTING TO BE "FEELING BETTER". CALL LIGHT IN REACH. 2LO2 VIA NC IN PLACE IS CONT BIOX. HR REMAINS IN LOW TO MID 50'S.
--- NOTE | 2019-09-07 18:15 | NUR ---
SHIFT SUMMARY PT FELT POORLY TODAY. C/O OFTEN OF DIZZINESS AND "NOT FEELING RIGHT" NO CHANGE TO RHYTHM, HR IN LOW TO MID 50'S TODAY - DOWN FROM PRIOR. LASIX INCR TODAY WITH INCR UO. NO CHANGE TO EDEMA IN EXTREMITIES, HOWEVER CHIN AND MIDSECTION SKIN IS NOT TIGHT. PT MORE LETHARGIC TODAY AND PALE. GRSON IN TO SEE PT. HE DOES STATE HIS BREATHING HAS IMPROVED. ANNELISE NOBLES AND ALVIN BOTH IN TO SEE PT TODAY. NEW ORDERS. PT CURRENTLY BACK TO BED, CALL LIGHT AND POSSESSIONS IN REACH, CPAP IN PLACE WITH 2L O2 BLEED IN - RT WILL CHANGE TO FULL FACE MASK TONIGHT D/T SEVERE APNEIC EPISODES WITH DESAT TO 70'S. WILL CONT TO MONITOR AND REPORT TO JOSE DUPONT.
[2019-09-08 04:30] LABS: BASOPHILS ABSOLUTE AUTO 0.08 K/mm3 (0.00-0.23); BASOPHILS PERCENT AUTO 1 % (0-2); EOSINOPHILS ABSOLUTE AUTO 0.54 K/mm3 (0.00-0.68); EOSINOPHILS PERCENT AUTO 7 % (0-6); Hematocrit 41.2 % (37.0-53.0); Hemoglobin 12.8 g/dL (13.5-17.5); IMMATURE GRAN ABSOLUTE AUTO 0.05 K/mm3 (0.00-0.10); IMMATURE GRAN PERCENT AUTO 1 % (0-1); LYMPHOCYTES ABSOLUTE AUTO 1.19 K/mm3 (0.84-5.20); LYMPHOCYTES PERCENT AUTO 15 % (21-46); MONOCYTES ABSOLUTE AUTO 0.96 K/mm3 (0.16-1.47); MONOCYTES PERCENT AUTO 12 % (4-13); Mean Corpuscular HGB 28.8 pg (26.0-34.0); Mean Corpuscular HGB Conc 31.1 g/dL (31.5-36.5); Mean Corpuscular Volume 93 fL (80-100); Mean Platelet Volume 9.5 fL (9.1-12.4); NEUTROPHILS ABSOLUTE AUTO 5.22 K/mm3 (1.96-9.15); NEUTROPHILS PERCENT AUTO 65 % (41-73); NRBC ABSOLUTE 0.03 K/mm3 (0.00-0.02); NRBC Auto 0.4 /100 WBC (0.0-0.2); Platelet Count 274 K/mm3 (150-400); RDW Coefficient Variation 14.6 % (11.7-14.2); RDW Standard Deviation 49.5 fL (35.1-46.3); Red Blood Cell Count 4.44 M/mm3 (4.30-5.90); White Blood Cell Count 8.04 K/mm3 (4.00-11.30)
[2019-09-08 04:45] LABS: Albumin, Blood 2.7 g/dL (3.4-5.0); Anion Gap 10 mmol/L (6-16); Blood Urea Nitrogen 78 mg/dL (8-24); Bun/Creatinine Ratio 40.6 (12.0-20.0); CO2, Blood 27 mmol/L (21-32); Calcium, Blood 8.8 mg/dL (8.5-10.1); Chloride, Blood 99 mmol/L (98-108); Creatinine, Blood 1.92 mg/dL (0.60-1.20); Glomerular Filtration Rate 37 (60-); Glucose, Blood 152 mg/dL (70-99); Phosphorus, Blood 4.2 mg/dL (2.5-4.9); Potassium, Blood 3.2 mmol/L (3.5-5.5); Sodium, Blood 136 mmol/L (136-145)
--- NOTE | 2019-09-08 06:59 | NUR ---
SHIFT SUMMARY PT RESTING IN ROOM COMFORTABLY AT THIS TIME. NO AUCTE CHANGES IN STATUS T/O NIGHT. PT CONTINUES TO REPORT "FEELING CRUMMY". DENIED ANY CP T/O NIGHT. RESP EVEN AND DYSPNIC W/ EXERTION ON 2L NC WHILE AWAKE, AND CPAP W/ 2L BLEED DURING SLEEP. PT CONTINUED TO PULL OFF CPAP MASK T/O NIGHT W/ EPISODES OF CONFUSION. PT REORIENTED TO NEED OF CPAP AND PULSE OX. PT WAS GOTTEN UP TO RECLINER ONCE DURING NIGHT, PT WAS SBA W/ 4WW AND TOLERATED MOVE WELL. DENIED OTHER NEEDS BEYOUND WANTING SNACKS DURING NIGHT. PT EDUCATED ABOUT BLOOD SUGAR AND ADA DIET AND WAS ALLOWED SMALL SNACK AT 0300. CALL LIGHT IN REACH. BED ALAMR ON D/T IMPLUSIVITY.
--- NOTE | 2019-09-08 08:44 | NUR ---
pt sitting up in the recliner chair, seems a bit irritable and confused/slow to process. cooperative with care, impulsive, lungs are dim t/o, resp even and unlabord, no cough noted, is on 2 liters 02 via n/c, sats 97%. hrirr, distant running afib with bbb per monitor, see strip, 3-4+ edema noted to b/l le, cap refill <3sec, vs stable, afebrile, iv site to rac is a field start flushes well, he is incont of urine, attends in place, skin has dark red discolored b/l le, otherwise c/w/d, elena ross, is in iso for mrsa in nares, bed alarm on when in bed. call light in reach.
--- NOTE | 2019-09-08 12:35 | NUR ---
pt sitting on the side of the bed eating lunch, covered for his glucose, no complaints at this time, is in good spirits at this time. call light in reach.
--- NOTE | 2019-09-08 12:37 | NUR ---
vs stable. no complaints, had a chest xray. will given an extra metoprolol as the dose was increased to 50mg. call light in reach.
--- NOTE | 2019-09-08 19:50 | NUR ---
Shift Summary Recieved report from day RN at appros 1500 and assumed care of pt at that time. VSS, pt sitting in chair, legs elevated but with 4+ pitting edema. Pt extremities cool, cap refil >3 seconds, pt reports n/t at baseline. this pt is alert but forgetful and impulsive, bed and chair alarm in place. Pt is incontinent of bowel and bladder; attends in place. This RN called dr. wilde regarding strick i&o orders - per dr. arias no mari catheter, try to weigh saturated attends to quantify output. Dr. wilde to follow up in AM. Scale obtained from medical floor but does not work at this time; condom cath attempted but d/t pt anatomy does not work either. NOC RN aware of need for I&O documentation. Hand off given to NOC RN who assumes care at this time.
--- NOTE | 2019-09-09 01:20 | NUR ---
PROVIDER CONTACTED PT WITH INCREASED ITCHING TO BACK, ARMS AND LEGS. NO RASH SEEN, BUT SEVERAL SCABS NOTED ON EXTREMITIES AND ABDOMEN FROM CONTINUOUS SCRATCHING. SKIN CARE AND LOTION APPLICATION PROVIDED WITH NO RELIEF. PT BECOMING RESTLESS AND PULLING AT TELEMETRY LEADS, CPAP, AND CONTINUOUS BIOX R/T ITCHING PER HIS REPORT. DR GALLEGOS CONTACTED AND ORDERS RECEIVED FOR BENADRYL 25 MG PO Q8 FOR ITCHING. WILL INPUT ORDERS AND ADMINISTER.
[2019-09-09 03:56] LABS: BASOPHILS ABSOLUTE AUTO 0.08 K/mm3 (0.00-0.23); BASOPHILS PERCENT AUTO 1 % (0-2); EOSINOPHILS ABSOLUTE AUTO 0.47 K/mm3 (0.00-0.68); EOSINOPHILS PERCENT AUTO 6 % (0-6); Hemoglobin 12.5 g/dL (13.5-17.5); IMMATURE GRAN ABSOLUTE AUTO 0.05 K/mm3 (0.00-0.10); IMMATURE GRAN PERCENT AUTO 1 % (0-1); LYMPHOCYTES ABSOLUTE AUTO 1.01 K/mm3 (0.84-5.20); LYMPHOCYTES PERCENT AUTO 13 % (21-46); MONOCYTES ABSOLUTE AUTO 1.03 K/mm3 (0.16-1.47); MONOCYTES PERCENT AUTO 13 % (4-13); Mean Corpuscular HGB Conc 30.5 g/dL (31.5-36.5); Mean Corpuscular Volume 92 fL (80-100); Mean Platelet Volume 9.4 fL (9.1-12.4); NEUTROPHILS PERCENT AUTO 67 % (41-73); NRBC ABSOLUTE 0.02 K/mm3 (0.00-0.02); NRBC Auto 0.3 /100 WBC (0.0-0.2); Platelet Count 299 K/mm3 (150-400); RDW Coefficient Variation 14.4 % (11.7-14.2); RDW Standard Deviation 48.4 fL (35.1-46.3); Red Blood Cell Count 4.46 M/mm3 (4.30-5.90); White Blood Cell Count 7.94 K/mm3 (4.00-11.30)
[2019-09-09 04:17] LABS: Albumin, Blood 2.8 g/dL (3.4-5.0); Anion Gap 9 mmol/L (6-16); Blood Urea Nitrogen 83 mg/dL (8-24); Bun/Creatinine Ratio 44.6 (12.0-20.0); CO2, Blood 32 mmol/L (21-32); Chloride, Blood 97 mmol/L (98-108); Creatinine, Blood 1.86 mg/dL (0.60-1.20); Glomerular Filtration Rate 38 (60-); Glucose, Blood 155 mg/dL (70-99); Magnesium, Blood 2.2 mg/dL (1.6-2.4); Phosphorus, Blood 4.1 mg/dL (2.5-4.9); Potassium, Blood 2.8 mmol/L (3.5-5.5); Sodium, Blood 138 mmol/L (136-145)
--- NOTE | 2019-09-09 06:06 | NUR ---
SHIFT SUMMARY PT HAS REMAINED MOSTLY AOX4 THROUGHOUT SHIFT WITH MOMENTS OF DISORIENTATION UPON WAKING. PT CAN BE IRRITABLE AT TIMES, BUT IS MOSTLY REDIRECTABLE. PT HAS RESTED THROUGHOUT MUCH OF THE NIGHT, WAKING EASILY FOR CARE. O2 SATS HAVE REMAINED >90% ON 2L VIA NASAL CANNULA WHILE AWAKE AND ON CPAP WITH 2L BLEED IN WHILE SLEEPING. PT W/ OCCASIONAL DESATURATIONS INTO THE MID-70s WITH APNEIC PERIODS WHILE SLEEPING, BUT RECOVERS QUICKLY TO >90 WITHIN TWO MINUTES. PT REMAINS INCONTINENT OF URINE, ATTENDS WEIGHED PER PHYSICIAN REQUEST- SEE I&O SECTION OF CHART.PT WITH 30-BEAT RUN OF V-TACH THIS AM, PT ASYMPTOMATIC AND CONTINUED TO REST WITH CPAP IN PLACE- RHYTHM STRIP IN CHART. PT HAS NOT REPORTED FURTHER ITCHING SINCE BENADRYL ADMINISTERED THIS AM. NO OTHER CHANGES NOTED FROM INITIAL ASSESSMENT. WILL CONTINUE TO MONITOR AND REPORT TO ONCOMING SHIFT RN. BED IN LOW POSITION, CALL LIGHT IN REACH.
[2019-09-09 11:30] LABS: Creatinine, Urine Random 62.8 mg/dL (27.00-270.00); Protein, Urine Random 17.8 mg/dL (0.0-11.9)
[2019-09-09 13:22] LABS: Albumin, Blood 2.9 g/dL (3.4-5.0); Anion Gap 8 mmol/L (6-16); Blood Urea Nitrogen 78 mg/dL (8-24); Bun/Creatinine Ratio 44.6 (12.0-20.0); CO2, Blood 34 mmol/L (21-32); Chloride, Blood 96 mmol/L (98-108); Creatinine, Blood 1.75 mg/dL (0.60-1.20); Glomerular Filtration Rate 41 (60-); Glucose, Blood 192 mg/dL (70-99); Phosphorus, Blood 3.9 mg/dL (2.5-4.9); Sodium, Blood 138 mmol/L (136-145)
--- NOTE | 2019-09-09 18:08 | NUR ---
SHIFT SUMMARY PT ALERT AND ORIENTED, BUT FORGETFUL AT TIMES. VS STABLE. HR AFLUTTER 50'S, BUT TOUCHING DOWN TO THE 40'S. BP STABLE. O2 SATS REMAIN ABOVE 90% ON 2L NC. PT USES CPAP NEEDED WHILE SLEEPING. DIURETICS HELD THIS AM PER DR. NOBLES DUE TO POTASSIUM LEVEL. PT HAS BEEN CONTINENT THIS SHIFT OF BLADDER. ORDERS FOR CATHETER PROVIDED. SPOKE WITH DR. SANDERSON ABOUT LÓPEZ ORDERS AND WE ARE HOLDING DUE TO PT BEING CONTINENT THIS SHIFT AND WE CAN PLACE IT IF INCONTINENCE BECOMES A PROBLEM. PT REPORTS SOME BURNING IN HIS UPPER ABD THAT FEELS LIKE GASTRIC REFLUX. NO CHANGES ON TELEMETRY. BP STABLE. WILL CONTINUE TO MONITOR CLOSELY AND REPORT TO ONCOMING RN. CALL LIGHT IN REACH.
[2019-09-09 20:34] LABS: Appearance, Urine Clear (Clear); Bilirubin, Urine Neg (Neg); Blood, Urine Neg (Neg); Color, Urine Yellow (P-Yellow); Glucose Qualitative, Urine Neg (Neg); Ketones, Urine Neg (Neg); Leukocyte Esterase, Urine 1+ (Neg); Nitrite, Urine Neg (Neg); Protein, Urine 1+ (Neg); Specific Gravity, Urine 1.015 (1.003-1.022); Urobilinogen, Urine NORM (Normal)
[2019-09-09 20:40] LABS: Bacteria Mod /hpf; Red Blood Cells, Urine 0-2 /hpf (0-2); Squamous Epithelial Cells Rare /hpf (Few)
[2019-09-10 03:47] LABS: BASOPHILS ABSOLUTE AUTO 0.07 K/mm3 (0.00-0.23); BASOPHILS PERCENT AUTO 1 % (0-2); EOSINOPHILS ABSOLUTE AUTO 0.41 K/mm3 (0.00-0.68); EOSINOPHILS PERCENT AUTO 5 % (0-6); Hematocrit 40.1 % (37.0-53.0); Hemoglobin 12.2 g/dL (13.5-17.5); IMMATURE GRAN ABSOLUTE AUTO 0.04 K/mm3 (0.00-0.10); IMMATURE GRAN PERCENT AUTO 1 % (0-1); LYMPHOCYTES ABSOLUTE AUTO 0.88 K/mm3 (0.84-5.20); LYMPHOCYTES PERCENT AUTO 11 % (21-46); MONOCYTES ABSOLUTE AUTO 0.98 K/mm3 (0.16-1.47); MONOCYTES PERCENT AUTO 12 % (4-13); Mean Corpuscular HGB 28.6 pg (26.0-34.0); Mean Corpuscular HGB Conc 30.4 g/dL (31.5-36.5); Mean Corpuscular Volume 94 fL (80-100); Mean Platelet Volume 9.5 fL (9.1-12.4); NEUTROPHILS ABSOLUTE AUTO 5.83 K/mm3 (1.96-9.15); NEUTROPHILS PERCENT AUTO 71 % (41-73); NRBC ABSOLUTE 0.02 K/mm3 (0.00-0.02); NRBC Auto 0.2 /100 WBC (0.0-0.2); Platelet Count 297 K/mm3 (150-400); RDW Coefficient Variation 14.6 % (11.7-14.2); RDW Standard Deviation 50.4 fL (35.1-46.3); Red Blood Cell Count 4.27 M/mm3 (4.30-5.90); White Blood Cell Count 8.21 K/mm3 (4.00-11.30)
[2019-09-10 04:08] LABS: Albumin, Blood 2.9 g/dL (3.4-5.0); Anion Gap 8 mmol/L (6-16); Blood Urea Nitrogen 75 mg/dL (8-24); Bun/Creatinine Ratio 44.6 (12.0-20.0); CO2, Blood 34 mmol/L (21-32); Calcium, Blood 9.1 mg/dL (8.5-10.1); Chloride, Blood 98 mmol/L (98-108); Creatinine, Blood 1.68 mg/dL (0.60-1.20); Glomerular Filtration Rate 43 (60-); Glucose, Blood 78 mg/dL (70-99); Magnesium, Blood 2.1 mg/dL (1.6-2.4); Phosphorus, Blood 3.4 mg/dL (2.5-4.9); Sodium, Blood 140 mmol/L (136-145)
[2019-09-10 04:26] LABS: Source, Urine Catheter
[2019-09-10 04:29] LABS: Bilirubin, Urine Neg (Neg); Blood, Urine Neg (Neg); Glucose Qualitative, Urine Neg (Neg); Ketones, Urine Neg (Neg); Leukocyte Esterase, Urine Neg (Neg); Nitrite, Urine Neg (Neg); Protein, Urine 1+ (Neg); Urobilinogen, Urine NORM (Normal); pH, Urine 6.5 (5.0-8.0)
[2019-09-10 04:33] LABS: Appearance, Urine Clear (Clear); Color, Urine Yellow (P-Yellow)
--- NOTE | 2019-09-10 06:14 | NUR ---
tremors in hand, new cath placed r/accurate i/o, call light in reach, scabs scattered around on torso from scratching, treated with benidryl, up in chair for a change this am, snack r/low cbg, legs remain swollen and red, cream applied to back and powder placed in folds, will continue to monitor and treat until provide bsr with staff
--- NOTE | 2019-09-10 18:04 | NUR ---
SHIFT SUMMARY PT ALERT AND ORIENTED. PT FORGETFUL AT TIMES. VS STABLE. 02 SATS HAVE REMAINED ABOVE 90% ON 2L NC. PT USES CPAP AT NIGHT OR FOR SLEEPING. BP STABLE. HR AFLUTTER 50-60'S. LÓPEZ PATENT AND DRAINING CLEAR YELLOW URINE. PT UP TO CHAIR FOR MEALS TODAY WITH SBA AND FWW. PT HAD ONE BM THIS SHIFT. WILL CONTINUE TO MONITOR AND REPORT TO ONCOMING RN. CALL LIGHT IN REACH.
[2019-09-11 03:32] LABS: BASOPHILS ABSOLUTE AUTO 0.04 K/mm3 (0.00-0.23); BASOPHILS PERCENT AUTO 1 % (0-2); EOSINOPHILS ABSOLUTE AUTO 0.36 K/mm3 (0.00-0.68); EOSINOPHILS PERCENT AUTO 5 % (0-6); Hemoglobin 11.9 g/dL (13.5-17.5); IMMATURE GRAN ABSOLUTE AUTO 0.05 K/mm3 (0.00-0.10); IMMATURE GRAN PERCENT AUTO 1 % (0-1); LYMPHOCYTES ABSOLUTE AUTO 0.92 K/mm3 (0.84-5.20); LYMPHOCYTES PERCENT AUTO 12 % (21-46); MONOCYTES ABSOLUTE AUTO 0.93 K/mm3 (0.16-1.47); MONOCYTES PERCENT AUTO 12 % (4-13); Mean Corpuscular HGB 28.3 pg (26.0-34.0); Mean Corpuscular HGB Conc 30.5 g/dL (31.5-36.5); Mean Corpuscular Volume 93 fL (80-100); Mean Platelet Volume 9.4 fL (9.1-12.4); NEUTROPHILS ABSOLUTE AUTO 5.39 K/mm3 (1.96-9.15); NEUTROPHILS PERCENT AUTO 70 % (41-73); Platelet Count 267 K/mm3 (150-400); RDW Coefficient Variation 14.6 % (11.7-14.2); RDW Standard Deviation 50.2 fL (35.1-46.3); White Blood Cell Count 7.69 K/mm3 (4.00-11.30)
[2019-09-11 03:53] LABS: Albumin, Blood 2.9 g/dL (3.4-5.0); Anion Gap 9 mmol/L (6-16); Blood Urea Nitrogen 73 mg/dL (8-24); Bun/Creatinine Ratio 43.2 (12.0-20.0); CO2, Blood 28 mmol/L (21-32); Calcium, Blood 8.5 mg/dL (8.5-10.1); Chloride, Blood 98 mmol/L (98-108); Creatinine, Blood 1.69 mg/dL (0.60-1.20); Glomerular Filtration Rate 43 (60-); Glucose, Blood 337 mg/dL (70-99); Magnesium, Blood 2.1 mg/dL (1.6-2.4); Phosphorus, Blood 3.4 mg/dL (2.5-4.9); Potassium, Blood 3.8 mmol/L (3.5-5.5); Sodium, Blood 135 mmol/L (136-145)
--- NOTE | 2019-09-11 06:44 | NUR ---
still anxiouus / fidgeting, pulls out wires and hoses, attached pulseopt to finger rather than ear for better results, up in chair, no bm during shift, call light in reach and utilized often, medicated successfully for anxiety, saline locked, feet red, painful and elevated
--- NOTE | 2019-09-11 16:07 | NUR ---
UPDATE PT ALERT AND ORIENTED THIS SHIFT. VS STABLE. O2 SATS REMAIN ABOVE 90% ON 2L NC. PT HAS USED HIS CPAP WITH 2L BLEED IN FOR SLEEPING. HR AFLUTTER 50-60'S. LÓPEZ PATENT AND DRAINING CLEAR YELLOW URINE. PT HAD LARGE HARD BM THIS SHIFT AND WAS STARTED ON STOOL SOFTENERS THIS SHIFT. PT ABLE TO AMBULATE TO BSC NEEDED WITH 1 ASSIST AND FWW. PT IMPULSIVE AT TIMES AND BED ALARM IS ON. ORDERS FOR PT TO TRANSFER TO MEDICAL FLOOR. REPORT HAS BEEN CALLED TO [facility]. PT TO BE TAKEN UP BY BED.
--- NOTE | 2019-09-11 17:19 | NUR ---
PT ARRIVED TO THE MEDICAL FLOOR FROM THE PCU A/OX3, PLEASANT AND COOPERATIVE, THE PT WAS MOMENTARILY TEARFULL WHEN REPOSTITIONED DUE TO CHRONIC BACK PAIN ON ARRIVAL TO THE ROOM, THE PT WAS ORIENTED TO THE ROOM LAYOUT AND CALL SYSTEM, O2 APPLIED VIA NC, THE PT HAS NOTICABLE TREMORS, FAMILY IS AT THE BEDSIDE, WILL MEDICATE THE PT WITH TYLENOL FOR PAIN, LÓPEZ CATHETER INPLACE AND DRAINING, CALL LIGHT IN REACH
[2019-09-12 04:54] LABS: BASOPHILS ABSOLUTE AUTO 0.05 K/mm3 (0.00-0.23); BASOPHILS PERCENT AUTO 1 % (0-2); EOSINOPHILS ABSOLUTE AUTO 0.56 K/mm3 (0.00-0.68); EOSINOPHILS PERCENT AUTO 7 % (0-6); Hematocrit 39.1 % (37.0-53.0); IMMATURE GRAN ABSOLUTE AUTO 0.06 K/mm3 (0.00-0.10); IMMATURE GRAN PERCENT AUTO 1 % (0-1); LYMPHOCYTES ABSOLUTE AUTO 0.98 K/mm3 (0.84-5.20); LYMPHOCYTES PERCENT AUTO 12 % (21-46); MONOCYTES ABSOLUTE AUTO 0.95 K/mm3 (0.16-1.47); MONOCYTES PERCENT AUTO 12 % (4-13); Mean Corpuscular HGB 27.9 pg (26.0-34.0); Mean Corpuscular HGB Conc 30.7 g/dL (31.5-36.5); Mean Corpuscular Volume 91 fL (80-100); Mean Platelet Volume 9.2 fL (9.1-12.4); NEUTROPHILS ABSOLUTE AUTO 5.35 K/mm3 (1.96-9.15); NEUTROPHILS PERCENT AUTO 67 % (41-73); Platelet Count 254 K/mm3 (150-400); RDW Coefficient Variation 14.6 % (11.7-14.2); RDW Standard Deviation 48.8 fL (35.1-46.3); White Blood Cell Count 7.95 K/mm3 (4.00-11.30)
[2019-09-12 05:16] LABS: Albumin, Blood 2.8 g/dL (3.4-5.0); Anion Gap 7 mmol/L (6-16); Blood Urea Nitrogen 70 mg/dL (8-24); Bun/Creatinine Ratio 43.8 (12.0-20.0); CO2, Blood 31 mmol/L (21-32); Calcium, Blood 8.7 mg/dL (8.5-10.1); Chloride, Blood 99 mmol/L (98-108); Glomerular Filtration Rate 46 (60-); Glucose, Blood 270 mg/dL (70-99); Phosphorus, Blood 3.4 mg/dL (2.5-4.9); Potassium, Blood 3.8 mmol/L (3.5-5.5); Sodium, Blood 137 mmol/L (136-145)
[2019-09-12] MEDS ORDERED: HUMALOG KW200 UNIT/1 (14:21)
--- NOTE | 2019-09-12 15:55 | NUR ---
PT. TRANSFERRED TO [facility] VIA WC VAN WITH OXYGEN. GUEST SERVICES MANAGER TOO OUR OXYGEN TANK, REPORT WAS ALREADY CALLED.
== END 2019-09-12 15:55 | DRG 280 ==
LOC: ER 14:11 → PCU 17:10 → MEDS 09-11 16:56 → ENPENDDIS 09-12 11:21 → MEDS 09-12 15:55
PROVIDERS: Internal Medicine; ADMIT Hospitalist
PROC: 5A09357 Assistance with Respiratory Ventilation, Less than 24 Consecutive Hours, Continuous Positive Airway Pressure (ICD-10-PCS; principal; 2019-09-05)
DX: I13.0 Hypertensive heart and chronic kidney disease with heart failure and stage 1 through stage 4 chronic kidney disease, or unspecified chronic kidney disease (principal); J96.21 Acute and chronic respiratory failure with hypoxia; I21.4 Non-ST elevation (NSTEMI) myocardial infarction; I50.33 Acute on chronic diastolic (congestive) heart failure; Z68.43 Body mass index [BMI] 50.0-59.9, adult; N17.9 Acute kidney failure, unspecified; Z79.4 Long term (current) use of insulin; I25.2 Old myocardial infarction; Z95.1 Presence of aortocoronary bypass graft; J44.9 Chronic obstructive pulmonary disease, unspecified; E66.01 Morbid (severe) obesity due to excess calories; G20 Parkinson's disease; E87.6 Hypokalemia; E87.5 Hyperkalemia; E11.9 Type 2 diabetes mellitus without complications; N18.3 Chronic kidney disease, stage 3 (moderate); R00.1 Bradycardia, unspecified; T44.7X5A Adverse effect of beta-adrenoreceptor antagonists, initial encounter; Y92.239 Unspecified place in hospital as the place of occurrence of the external cause; Z22.322 Carrier or suspected carrier of Methicillin resistant Staphylococcus aureus
CPT/HCPCS: 36415; 71045; 80048; 80053; 80061; 80069; 81001; 82570; 82947; 83735; 83880; 84156; 84484; 85025; 85730; 87081; 90686; 93005; 93010; 94640; 94660; 94762; 96374; 96375; 97110; 97116; 97162; 97166; 97530; 97535; 99285-25; A9270; C8929; J1650; J1940; J3480; J7050; J7799; Q0163; Q9957